=== PATIENT | male | born 1965 | race Two or more races ===

== ENCOUNTER 2024-10-20 16:27 | Emergency (ER) | payer OTHER ==
[~2024-10-20] VITALS: Ht 170.2 cm; Wt 88.6 kg
== END 2024-10-20 20:35 ==
LOC: EMS 16:27
DX: I46.9 Cardiac arrest, cause unspecified (principal); E11.9 Type 2 diabetes mellitus without complications
CPT/HCPCS: 92950; 99285; 99291; Z7502